=== PATIENT | male | born 1940 | race Caucasian/White ===

== ENCOUNTER → 2017-06-04 | Outpatient (CLI) | payer MEDICARE, OTHER ==
[~2017-06-04] MED LIST: ASPI81CH PO; CENTRUM SILVER1 EAC2 PO; LOSA25; OXYB5 PO
== END | disposition home or self-care (01) ==
LOC: PLD 14:07 → LAB SHORT 14:07
DX: C44.41 Basal cell carcinoma of skin of scalp and neck (principal)
CPT/HCPCS: 88305

== ENCOUNTER 2017-10-17 15:27 | Emergency (ER) | payer MEDICARE, OTHER ==
[~2017-10-17] VITALS: Ht 175.3 cm; Wt 87.1 kg
[~2017-10-17 15:27] MED LIST changes: -OXYB5 PO
[2017-10-17 16:20] LABS: Hematocrit 43.4 % (37.0-53.0); Hemoglobin 13.9 g/dL (13.5-17.5); Mean Corpuscular HGB 30.2 pg (26.0-34.0); Mean Corpuscular Volume 94 fL (80-100); Mean Platelet Volume 9.5 fL (9.1-12.4); Platelet Count 269 K/mm3 (150-400); RDW Coefficient Variation 13.9 % (11.7-14.2); RDW Standard Deviation 47.9 fL (35.1-46.3); Red Blood Cell Count 4.61 M/mm3 (4.30-5.90); White Blood Cell Count 32.13 K/mm3 (4.00-11.30)
[2017-10-17] MEDS ORDERED: OXYB5 PO (16:24)
[2017-10-17 16:40] LABS: Albumin, Blood 3.7 g/dL (3.4-5.0); Albumin/Globulin Ratio 0.8 (0.8-1.8); Bilirubin, Total 0.5 mg/dL (0.1-1.0); Calcium, Blood 9.1 mg/dL (8.5-10.1); Creatinine, Blood 1.41 mg/dL (0.60-1.20); Globulin, Blood 4.4 g/dL (2.2-4.0); Potassium, Blood 4.3 mmol/L (3.5-5.5); Total Protein, Blood 8.1 g/dL (6.4-8.2)
[2017-10-17 16:45] LABS: BASOPHILS ABSOLUTE MAN 0.32 K/mm3 (0.00-0.23); BASOPHILS PERCENT MAN 1 % (0-2); EOSINOPHILS PERCENT MAN 0 % (0-6); LYMPHOCYTES ABSOLUTE MAN 23.45 K/mm3 (0.84-5.20); LYMPHOCYTES PERCENT MAN 73 % (21-46); MONOCYTES PERCENT MAN 0 % (4-13); NEUTROPHILS ABSOLUTE MAN 8.35 K/mm3 (1.96-9.15); SEG NEUTROPHILS PERCENT MAN 26 % (41-73); TOTAL CELLS COUNTED 100
[2017-10-17 17:56] LABS: Source, Urine Clean Catch
[2017-10-17 18:00] LABS: Bilirubin, Urine Neg (Neg); Blood, Urine 2+ (Neg); Glucose Qualitative, Urine Neg (Neg); Ketones, Urine Neg (Neg); Leukocyte Esterase, Urine 2+ (Neg); Nitrite, Urine Neg (Neg); Protein, Urine 2+ (Neg); Urobilinogen, Urine NORM (Normal)
[2017-10-17 18:12] LABS: Appearance, Urine Clear (Clear); Color, Urine Yellow (P-Yellow)
[2017-10-17 18:13] LABS: Bacteria Not Seen /hpf; Red Blood Cells, Urine Not Seen /hpf (0-2); Squamous Epithelial Cells Not Seen /hpf (Few); White Blood Cells, Urine Not Seen /hpf (0-5)
== END 2017-10-17 18:55 | disposition home or self-care (01) ==
LOC: ER 15:27
PROVIDERS: Physician Assistant
DX: R33.9 Retention of urine, unspecified (principal); Z88.0 Allergy status to penicillin; Z88.1 Allergy status to other antibiotic agents; Z88.8 Allergy status to other drugs, medicaments and biological substances; Z79.899 Other long term (current) drug therapy; Z79.82 Long term (current) use of aspirin
CPT/HCPCS: 36415; 51798; 74176; 80053; 81001; 83690; 85025; 99284-25

== ENCOUNTER → 2018-05-07 | Outpatient (CLI) | payer MEDICARE, OTHER ==
[~2018-05-07] MED LIST changes: +OXYB5 PO
== END | disposition home or self-care (01) ==
LOC: LAB EV 11:10 → LAB SHORT 11:10
DX: R30.0 Dysuria (principal)
CPT/HCPCS: 87086

== ENCOUNTER → 2018-06-18 | Outpatient (CLI) | payer MEDICARE, OTHER | END | disposition home or self-care (01) | LOC: LAB SHORT 12:33 → PLD 12:33 | DX: D04.4 Carcinoma in situ of skin of scalp and neck (principal) | CPT/HCPCS: 88305 ==

== ENCOUNTER → 2018-09-10 | Outpatient (CLI) | payer MEDICARE, OTHER | END | disposition home or self-care (01) | LOC: PLD 11:30 → LAB SHORT 11:30 | DX: C44.40 Unspecified malignant neoplasm of skin of scalp and neck (principal) | CPT/HCPCS: 88305 ==

== ENCOUNTER → 2018-12-07 | Outpatient (CLI) | payer MEDICARE, OTHER | END | disposition home or self-care (01) | LOC: LAB SHORT 08:02 → PLD 08:02 | DX: C44.41 Basal cell carcinoma of skin of scalp and neck (principal) | CPT/HCPCS: 88305 ==

== ENCOUNTER 2018-12-19 18:55 | Emergency (ER) | payer MEDICARE, OTHER ==
[~2018-12-19] VITALS: Ht 175.3 cm; Wt 78.5 kg
[2018-12-19 20:45] LABS: Calcium, Ionized (POC) 1.19 mmol/L (1.10-1.46); Chloride (POC) 107 mmol/L (98-108); Creatinine (POC) 1.3 mg/dL (0.8-1.3); Glucose (ISTAT POC) 136 mg/dL (70-99); Hemoglobin (POC) 13.9 g/dL (13.5-17.5); Potassium (POC) 3.9 mmol/L (3.5-5.5); Sodium (POC) 141 mmol/L (135-148); Total CO2 (POC) 23 mmol/L (21-32)
[2018-12-19 21:42] LABS: Source, Urine Catheter
[2018-12-19 21:45] LABS: Bilirubin, Urine Neg (Neg); Blood, Urine 4+ (Neg); Glucose Qualitative, Urine Neg (Neg); Ketones, Urine Neg (Neg); Leukocyte Esterase, Urine 3+ (Neg); Nitrite, Urine Pos (Neg); Protein, Urine 2+ (Neg); Urobilinogen, Urine 1+ (Normal)
[2018-12-19 21:48] LABS: Appearance, Urine Clear (Clear); Color, Urine Yellow (P-Yellow)
[2018-12-19 21:52] LABS: Red Blood Cells, Urine 25-50 /hpf (0-2)
[2018-12-19 21:53] LABS: Bacteria Mod /hpf; Hyaline Casts 0-2 /lpf (0-2); Mucus Light (0-Heavy); Squamous Epithelial Cells Rare /hpf (Few)
== END 2018-12-19 22:22 | disposition short-term general hospital (02) ==
LOC: ER 18:55
PROVIDERS: Emergency Medicine
DX: N39.0 Urinary tract infection, site not specified (principal); R33.9 Retention of urine, unspecified; Z88.0 Allergy status to penicillin; Z88.1 Allergy status to other antibiotic agents; Z88.8 Allergy status to other drugs, medicaments and biological substances; Z79.82 Long term (current) use of aspirin
CPT/HCPCS: 51798; 80047; 81001; 85014; 87076; 87086; 99284-25

== ENCOUNTER → 2019-04-20 | Outpatient (CLI) | payer MEDICARE, OTHER | END | disposition home or self-care (01) | LOC: PLD 14:36 → LAB SHORT 14:36 | DX: D04.62 Carcinoma in situ of skin of left upper limb, including shoulder (principal) | CPT/HCPCS: 88305 ==

== ENCOUNTER → 2020-01-04 | Outpatient (CLI) | payer MEDICARE, OTHER | LOC: OLS 10:30 → LAB SHORT 10:30 | DX: N20.0 Calculus of kidney (principal) | CPT/HCPCS: 87077; 87086; 87186 ==

== ENCOUNTER 2020-01-05 11:24 | Emergency (ER) | payer MEDICARE, OTHER ==
[~2020-01-05] VITALS: Ht 175.3 cm; Wt 79.4 kg
== END 2020-01-05 13:10 | disposition home or self-care (01) ==
LOC: ER 11:24
DX: R10.30 Lower abdominal pain, unspecified (principal); N39.8 Other specified disorders of urinary system; Z88.0 Allergy status to penicillin; Z88.1 Allergy status to other antibiotic agents; Z88.8 Allergy status to other drugs, medicaments and biological substances; Z85.46 Personal history of malignant neoplasm of prostate; Z87.891 Personal history of nicotine dependence
CPT/HCPCS: 99283

== ENCOUNTER → 2020-03-30 | Outpatient (CLI) | payer MEDICARE, OTHER ==
[2020-03-30 13:55] LABS: Source, Urine Clean Catch
[2020-03-30 15:11] LABS: Appearance, Urine Hazy (Clear); Bilirubin, Urine Neg (Neg); Blood, Urine 3+ (Neg); Color, Urine Yellow (P-Yellow); Glucose Qualitative, Urine Neg (Neg); Ketones, Urine Neg (Neg); Leukocyte Esterase, Urine 3+ (Neg); Nitrite, Urine Neg (Neg); Protein, Urine 2+ (Neg); Urobilinogen, Urine NORM (Normal); pH, Urine 6.5 (5.0-8.0)
[2020-03-30 15:21] LABS: White Blood Cells, Urine TNTC /hpf (0-5)
[2020-03-30 15:22] LABS: Bacteria Many /hpf; Squamous Epithelial Cells Rare /hpf (Few)
== END ==
LOC: PLD 13:54 → LAB SHORT 13:54 → LAB FUT 03-30 13:20
PROVIDERS: Nurse Practitioner
DX: N39.0 Urinary tract infection, site not specified (principal)
CPT/HCPCS: 81001; 87077; 87086; 87186

== ENCOUNTER → 2020-05-23 | Outpatient (CLI) | payer MEDICARE, OTHER | END | disposition home or self-care (01) | LOC: PLD 11:31 → LAB SHORT 11:31 | DX: D48.5 Neoplasm of uncertain behavior of skin (principal) | CPT/HCPCS: 88305 ==

== ENCOUNTER → 2020-06-21 | Outpatient (CLI) | payer MEDICARE, OTHER | LOC: LAB 12:53 → LAB SHORT 12:53 | DX: C44.212 Basal cell carcinoma of skin of right ear and external auricular canal (principal); Z88.0 Allergy status to penicillin; Z88.1 Allergy status to other antibiotic agents; Z88.8 Allergy status to other drugs, medicaments and biological substances | CPT/HCPCS: 88305 ==

== ENCOUNTER → 2020-09-27 | Outpatient (CLI) | payer MEDICARE, OTHER | LOC: LAB 11:08 → LAB SHORT 11:08 | DX: C44.42 Squamous cell carcinoma of skin of scalp and neck (principal) | CPT/HCPCS: 88305 ==

== ENCOUNTER → 2020-10-11 | Outpatient (CLI) | payer MEDICARE, OTHER | LOC: LAB 11:26 → LAB SHORT 11:26 | DX: C44.42 Squamous cell carcinoma of skin of scalp and neck (principal) | CPT/HCPCS: 88305 ==

== ENCOUNTER → 2021-07-06 | Outpatient (CLI) | payer MEDICARE, OTHER | END | disposition home or self-care (01) | LOC: LAB 17:30 → LAB SHORT 17:30 | DX: N39.0 Urinary tract infection, site not specified (principal) | CPT/HCPCS: 87077; 87086; 87186 ==

== ENCOUNTER → 2021-07-17 | Outpatient (CLI) | payer MEDICARE, OTHER | END | disposition home or self-care (01) | LOC: LAB 08:58 | DX: N45.2 Orchitis (principal) | CPT/HCPCS: 87086 ==

== ENCOUNTER 2021-08-06 04:01 | Emergency (ER) | payer MEDICARE, OTHER ==
[~2021-08-06] VITALS: Ht 175.3 cm; Wt 81.7 kg
== END 2021-08-06 06:15 | disposition home or self-care (01) ==
LOC: ER 04:01
DX: R33.9 Retention of urine, unspecified (principal); Z88.1 Allergy status to other antibiotic agents; Z88.0 Allergy status to penicillin; Z88.8 Allergy status to other drugs, medicaments and biological substances; Z79.899 Other long term (current) drug therapy; Z87.891 Personal history of nicotine dependence
CPT/HCPCS: A9270

== ENCOUNTER → 2022-01-21 | Outpatient (CLI) | payer MEDICARE, OTHER | END | disposition home or self-care (01) | LOC: LAB SHORT 12:21 → LAB 12:21 | DX: D09.8 Carcinoma in situ of other specified sites (principal); L72.0 Epidermal cyst | CPT/HCPCS: 88304; 88305 ==

== ENCOUNTER → 2022-11-28 | Outpatient (CLI) | payer MEDICARE, OTHER | LOC: LAB SHORT 11:45 → PLD 11:45 | DX: D04.4 Carcinoma in situ of skin of scalp and neck (principal) | CPT/HCPCS: 88305 ==

== ENCOUNTER → 2023-10-27 | Outpatient (CLI) | payer MEDICARE, OTHER ==
[2023-10-27 07:51] LABS: BASOPHILS ABSOLUTE AUTO 0.08 K/mm3 (0.00-0.23); BASOPHILS PERCENT AUTO 0 % (0-2); EOSINOPHILS ABSOLUTE AUTO 0.12 K/mm3 (0.00-0.68); EOSINOPHILS PERCENT AUTO 1 % (0-6); Hematocrit 41.2 % (37.0-53.0); Hemoglobin 13.1 g/dL (13.5-17.5); IMMATURE GRAN ABSOLUTE AUTO 0.11 K/mm3 (0.00-0.10); IMMATURE GRAN PERCENT AUTO 1 % (0-1); LYMPHOCYTES ABSOLUTE AUTO 15.57 K/mm3 (0.84-5.20); LYMPHOCYTES PERCENT AUTO 68 % (21-46); MONOCYTES ABSOLUTE AUTO 0.73 K/mm3 (0.16-1.47); MONOCYTES PERCENT AUTO 3 % (4-13); Mean Corpuscular HGB 31.6 pg (26.0-34.0); Mean Corpuscular HGB Conc 31.8 g/dL (31.5-36.5); Mean Corpuscular Volume 99 fL (80-100); NEUTROPHILS ABSOLUTE AUTO 6.22 K/mm3 (1.96-9.15); NEUTROPHILS PERCENT AUTO 27 % (41-73); Platelet Count 181 K/mm3 (150-400); RDW Coefficient Variation 13.9 % (11.7-14.2); RDW Standard Deviation 50.7 fL (35.1-46.3); Red Blood Cell Count 4.15 M/mm3 (4.30-5.90); White Blood Cell Count 22.83 K/mm3 (4.00-11.30)
== END | disposition home or self-care (01) ==
LOC: LAB SHORT 07:47 → LAB 07:47
PROVIDERS: Physician Assistant
DX: T14.8XXA Other injury of unspecified body region, initial encounter (principal)
CPT/HCPCS: 85025

== ENCOUNTER → 2024-12-15 | Outpatient (CLI) | payer MEDICARE, OTHER ==
[~2024-12-15] MED LIST changes: +SULTRIDS PO
== END ==
LOC: LAB SHORT 09:42 → LAB 09:42
DX: C67.2 Malignant neoplasm of lateral wall of bladder (principal); R30.0 Dysuria
CPT/HCPCS: 87077; 87086; 87186